=== PATIENT | male | born 1945 | race Caucasian/White ===

== ENCOUNTER → 2016-07-04 | Outpatient (CLI) | payer OTHER, BC | LOC: BMCIMAGING 11:17 | PROVIDERS: ATTEND Internal Medicine Rheumatology | DX: M18.0 Bilateral primary osteoarthritis of first carpometacarpal joints (principal) ==

== ENCOUNTER 2016-08-04 19:21 | Inpatient (IN) | payer OTHER, BC ==
--- NOTE | 2016-08-04 19:33 | EDPHY ---
H & P Time Seen by Provider: 08/04/16 19:27 HPI/ROS: CHIEF COMPLAINT: Fever and chills and dysuria HISTORY OF PRESENT ILLNESS: Patient is a history of enlarged prostate. This afternoon he felt hot and then turned the air conditioning on and started shivering. He was drinking a lot of coffee and had an episode of dysuria with some blood in his urine including passing a single clot. His temperature was a 102degrees and he continued to feel terrible and presents the emergency department for evaluation. No headache or neck stiffness or sore throat or recent travel or vomiting or diarrhea. No coughing and not short of breath. REVIEW OF SYSTEMS: Eye: no change in vision ENT: no sore throat Cardiac: no chest pain or syncope Pulmonary: no cough or SOB Abdomen: no vomiting, diarrhea, abdominal pain Musculoskeletal: no back pain Skin: no rash Neuro: no headache Constitutional: HPI : HPI A comprehensive 10 point review of systems is otherwise negative aside from elements mentioned in the history of present illness. PAST MEDICAL HISTORY: Enlarged prostate, surgery on both shoulders. Social history: Nonsmoker, no recent foreign travel. General Appearance: Alert and conversant, cooperative. Eyes: No scleral icterus. ENT, Mouth: Normal mucous membranes. Respiratory: Normal respiratory effort, breath sounds equal, lungs are clear to auscultation. Cardiovascular: Regular rate and rhythm. Gastrointestinal: Abdomen is soft and non tender. Normal male . Neurological: Alert and oriented x3. Normally conversant. Face symmetric, normal movement and sensation in all extremities. Ambulatory. Skin: Warm and dry, no rashes. Musculoskeletal: Neck supple, no meningeal signs. Psychiatric: Not agitated. Emergency Department course/MDM: Bladder scan shows no postvoid residual. Patient does have SIRS criteria with fever and tachycardia. Does not have severe sepsis or septic shock criteria. 2024: Results discussed, chest x-ray. Ceftriaxone IV for probable urosepsis. IV normal saline bolus. Smoking Status: Never smoked Constitutional: Initial Vital Signs Temperature (C) 39.4 C H 08/04/16 19:22 Heart Rate 105 H 08/04/16 19:22 Respiratory Rate 18 08/04/16 19:22 Blood Pressure 115/66 08/04/16 19:22 O2 Sat (%) 93 08/04/16 19:22 O2 Delivery Mode Room Air Allergies/Adverse Reactions: No Known Allergies Allergy (Unverified 08/04/16 19:25) Home Medications: Medication Instructions Recorded Dutasteride [Avodart 0.5 MG (*)] 0.5 mg PO DAILY 11/29/14 acetaZOLAMIDE [Diamox 250 mg (RX)] 250 mg PO DAILY 11/29/14 Aspirin [Aspirin 81mg (*)] 81 mg PO DAILY 08/04/16 Rosuvastatin Calcium [Crestor 5mg] 5 mg PO DAILY 08/04/16 Medical Decision Making - Diagnostics Imaging Results: Imaging Impressions Chest X-Ray 08/04/16 20:23 Impression: 1. No visible etiology for the patient's fever. 2. Mild compression fracture at L1, age indeterminate, new since 2009. Chest x-ray personally interpreted negative for pneumonia. Differential Diagnosis: Differential for fever and chills considered including but not limited to sepsis , UTI, pneumonia, meningitis, viral syndrome Consult/Admit Bed Type: [address] - Data Points Laboratory Results: Laboratory Results 08/04/16 19:35 08/04/16 19:35 08/04/16 08/04/16 08/04/16 19:35 19:35 19:35 WBC RBC Hgb Hct MCV MCH MCHC RDW Plt Count MPV Neut % (Auto) Lymph % (Auto) [place] % (Auto) Eos % (Auto) Baso % (Auto) Nucleat RBC Rel Count Absolute Neuts (auto) Absolute Lymphs (auto) Absolute Monos (auto) Absolute Eos (auto) Absolute Basos (auto) Absolute Nucleated RBC Immature Gran % Immature Gran # PT 13.7 SEC SEC (12.0-15.0) INR 1.06 (0.83-1.16) APTT 25.5 SEC SEC (23.0-38.0) VBG Lactic Acid Sodium 137 mEq/L mEq/L (134-144) Potassium 3.8 mEq/L mEq/L (3.5-5.2) Chloride 107 mEq/L mEq/L (97-110) Carbon Dioxide 18 mEq/l L mEq/l (22-31) Anion Gap 12 mEq/L mEq/L (8-16) BUN 20 mg/dL mg/dL (7-23) Creatinine 1.0 mg/dL mg/dL (0.7-1.3) Estimated GFR > 60 Glucose 108 mg/dL H mg/dL (70-100) Calcium 9.6 mg/dL mg/dL (8.5-10.4) Total Bilirubin 1.0 mg/dL mg/dL (0.1-1.4) Urine Color YELLOW Urine Appearance CLEAR Urine pH 5.0 (5.0-7.5) Ur Specific [place] 1.011 (1.002-1.030) Urine Protein NEGATIVE (NEGATIVE) Urine Ketones NEGATIVE (NEGATIVE) Urine Blood 2+ H (NEGATIVE) Urine Nitrate NEGATIVE (NEGATIVE) Urine Bilirubin NEGATIVE (NEGATIVE) Urine Urobilinogen NEGATIVE EU EU (0.2-1.0) Ur Leukocyte Esterase TRACE H (NEGATIVE) Urine RBC 25-50 /hpf H /hpf (0-3) Urine WBC 5-10 /hpf H /hpf (0-3) Ur Epithelial Cells TRACE /lpf /lpf (NONE-1+) Urine Glucose NEGATIVE (NEGATIVE) 08/04/16 08/04/16 19:35 19:35 WBC 11.95 10^3/uL H 10^3/uL (3.80-9.50) RBC 5.61 10^6/uL 10^6/uL (4.40-6.38) Hgb 16.1 g/dL g/dL (13.7-17.5) Hct 46.9 % % (40.0-51.0) MCV 83.6 fL fL (81.5-99.8) MCH 28.7 pg pg (27.9-34.1) MCHC 34.3 g/dL g/dL (32.4-36.7) RDW 13.2 % % (11.5-15.2) Plt Count 261 10^3/uL 10^3/uL (150-400) MPV 8.6 fL L fL (8.7-11.7) Neut % (Auto) 86.0 % H % (39.3-74.2) Lymph % (Auto) 4.2 % L % (15.0-45.0) [place] % (Auto) 4.5 % % (4.5-13.0) Eos % (Auto) 4.5 % % (0.6-7.6) Baso % (Auto) 0.5 % % (0.3-1.7) Nucleat RBC Rel Count 0.0 % % (0.0-0.2) Absolute Neuts (auto) 10.28 10^3/uL H 10^3/uL (1.70-6.50) Absolute Lymphs (auto) 0.50 10^3/uL L 10^3/uL (1.00-3.00) Absolute Monos (auto) 0.54 10^3/uL 10^3/uL (0.30-0.80) Absolute Eos (auto) 0.54 10^3/uL H 10^3/uL (0.03-0.40) Absolute Basos (auto) 0.06 10^3/uL 10^3/uL (0.02-0.10) Absolute Nucleated RBC 0.00 10^3/uL 10^3/uL (0-0.01) Immature Gran % 0.3 % % (0.0-1.1) Immature Gran # 0.03 10^3/uL 10^3/uL (0.00-0.10) PT INR APTT VBG Lactic Acid 0.9 mmol/L mmol/L (0.7-2.1) Sodium Potassium Chloride Carbon Dioxide Anion Gap BUN Creatinine Estimated GFR Glucose Calcium Total Bilirubin Urine Color Urine Appearance Urine pH Ur Specific [place] Urine Protein Urine Ketones Urine Blood Urine Nitrate Urine Bilirubin Urine Urobilinogen Ur Leukocyte Esterase Urine RBC Urine WBC Ur Epithelial Cells Urine Glucose Medications Given: Discontinued Medications Ceftriaxone Sodium/Dextrose (Rocephin 1 Gm (Premix)) 50 mls @ 100 mls/hr IV EDNOW ONE PRN Reason: Protocol Stop: 08/04/16 20:57 Last Admin: 08/04/16 20:40 Dose: 50 mls Sodium Chloride (Ns) 1,000 mls @ 0 mls/hr IV ONCE ONE; Wide Open PRN Reason: Protocol Stop: 08/04/16 20:29 Last Admin: 08/04/16 20:37 Dose: 1,000 mls Sodium Chloride (Ns) 1,000 mls @ 0 mls/hr IV ONCE ONE; Wide Open PRN Reason: Protocol Stop: 08/04/16 20:29 Last Admin: 08/04/16 20:37 Dose: 1,000 mls Departure - Departure Disposition: [facility] Inpatient Acute Clinical Impression: Urinary tract infection Qualifiers: Urinary tract infection type: acute pyelonephritis Qualified Code(s): N10 - Acute pyelonephritis Condition: Good
[2016-08-04 19:42] LABS: COLOR YELLOW; LEUKOCYTE ESTERASE,URINE TRACE (NEGATIVE); NITRITE,URINE NEGATIVE (NEGATIVE)
[2016-08-04 19:49] LABS: % IMMATURE GRANULYOCYTES 0.3 % (0.0-1.1); ABSOLUTE IMMATURE GRANULOCYTES 0.03 10^3/uL (0.00-0.10); ADD DIFF? NO; ADD MORPH? NO; ADD SCAN? NO; ATYPICAL LYMPHOCYTE FLAG 0 (0-99); FRAGMENT RBC FLAG 0 (0-99); HEMATOCRIT 46.9 % (40.0-51.0); HEMOGLOBIN 16.1 g/dL (13.7-17.5); LEFT SHIFT FLG 10 (0-99); LIPEMIA HEMOLYSIS FLAG 90 (0-99); MEAN CELL HEMOGLOBIN 28.7 pg (27.9-34.1); MEAN CELL HEMOGLOBIN CONCENTR. 34.3 g/dL (32.4-36.7); MEAN CELL VOLUME 83.6 fL (81.5-99.8); MEAN PLATELET VOLUME 8.6 fL (8.7-11.7); PLATELET CLUMPS FLAG 0 (0-99); PLATELET COUNT 261 10^3/uL (150-400); RED BLOOD CELL COUNT 5.61 10^6/uL (4.40-6.38); RED CELL DISTRIBUTION WIDTH 13.2 % (11.5-15.2)
[2016-08-04 19:56] LABS: APTT 25.5 SEC (23.0-38.0); INR 1.06 (0.83-1.16); PROTIME(PATIENT) 13.7 SEC (12.0-15.0)
[2016-08-04 20:00] LABS: ANION GAP 12 mEq/L (8-16); CALCIUM 9.6 mg/dL (8.5-10.4); CARBON DIOXIDE 18 mEq/l (22-31); CHLORIDE 107 mEq/L (97-110); GLOMERULAR FILTRATION RATE > 60; GLUCOSE 108 mg/dL (70-100); POTASSIUM 3.8 mEq/L (3.5-5.2); SODIUM 137 mEq/L (134-144)
[2016-08-04 20:11] LABS: RBC,URINE 25-50 /hpf (0-3)
[2016-08-04] MEDS ORDERED: NS 1,000 ML IV ONE ×2 (20:28)
[2016-08-04] MEDS ORDERED: ACETAMINOPHEN 325 MG TAB PO PRN (22:02)
[2016-08-04] MEDS ORDERED: ONDANSETRON 4 MG/2 ML VIAL IVP PRN (22:02)
[2016-08-04] MEDS ORDERED: oxyCODONE IR 5 MG TAB PO PRN (22:02)
[2016-08-04] MEDS ORDERED: ONDANSETRON DISINTEGRATING 4 MG TAB PO PRN (22:02)
[2016-08-04] MEDS ORDERED: PROMETHAZINE HCL 25 MG/ML INJ IVP PRN (22:02)
--- NOTE | 2016-08-04 22:10 | PDGENHP ---
History and Physical - Chief Complaint shaking chills/dysuria - History of Present Illness 71 yo M w/PMH of BPH, periodic familial paralysis presenting with fever, rigors and dysuria beginning today. He notes he was having difficulty urinating and burning with urination with associated pelvic and flank pain and then noted passing a blood clot from his penis with improved ability to urinate. This was followed however by violent shaking chills and fever. He asked a friend to come take a look at him and his friend thought that he should be seen in the ER. On arrival in the ER, he was found to be febrile and UA c/w possible UTI. He was given saline and Ceftriaxone and by the time I evaluated him he notes he is already feeling nearly 100% improved. He has never had similar issues in the past. He has no associated sxs. History Information - Allergies/Home Medication List Allergies/Adverse Reactions: No Known Allergies Allergy (Unverified 08/04/16 19:25) Home Medications: Dutasteride [Avodart 0.5 MG (*)] 0.5 mg PO DAILY 11/29/14 [Last Taken 08/04/16] acetaZOLAMIDE [Diamox 250 mg (RX)] 250 mg PO DAILY 11/29/14 [Last Taken 08/04/16 ] Aspirin [Aspirin 81mg (*)] 81 mg PO DAILY 08/04/16 [Last Taken 08/04/16] Rosuvastatin Calcium [Crestor 5mg] 5 mg PO DAILY 08/04/16 [Last Taken 08/04/16] I have personally reviewed and updated: family history, medical history, social history, surgical history - Past Medical History Additional medical history: BPH. periodic familial paralysis treated with acetazolamide and no longer causing issues - Surgical History Reports: no pertinent surgical hx - Family History Additional family history: multiple family members with periodic familial paralysis - Social History Smoking Status: Never smoked Alcohol Use: Rarely Drug Use: None Additional social history: lives independently Review of Systems ROS: 10pt was reviewed & negative except for what was stated in HPI & below Physical Exam Temp Pulse Resp BP Pulse Ox 36.4 C 77 16 104/62 93 08/04/16 21:52 08/04/16 21:52 08/04/16 21:52 08/04/16 21:52 08/04/16 21:52 Constitutional: no apparent distress, appears nourished Eyes: PERRL, anicteric sclera Ears, Nose, Mouth, Throat: moist mucous membranes, hearing normal Cardiovascular: regular rate and rhythym, no murmur, rub, or gallop, No edema Respiratory: no respiratory distress, no rales or rhonchi, clear to auscultation Gastrointestinal: normoactive bowel sounds, soft, non-tender abdomen Genitourinary: no bladder fullness, no bladder tenderness Skin: warm, normal color Musculoskeletal: full muscle strength Neurologic: AAOx3 Psychiatric: interacting appropriately, not anxious, not encephalopathic Lab Data & Imaging Review 08/04/16 19:35 08/04/16 19:35 WBC 11.95 10^3/uL (3.80-9.50) H 08/04/16 19:35 RBC 5.61 10^6/uL (4.40-6.38) 08/04/16 19:35 Hgb 16.1 g/dL (13.7-17.5) 08/04/16 19:35 Hct 46.9 % (40.0-51.0) 08/04/16 19:35 MCV 83.6 fL (81.5-99.8) 08/04/16 19:35 MCH 28.7 pg (27.9-34.1) 08/04/16 19:35 MCHC 34.3 g/dL (32.4-36.7) 08/04/16 19:35 RDW 13.2 % (11.5-15.2) 08/04/16 19:35 Plt Count 261 10^3/uL (150-400) 08/04/16 19:35 MPV 8.6 fL (8.7-11.7) L 08/04/16 19:35 Neut % (Auto) 86.0 % (39.3-74.2) H 08/04/16 19:35 Lymph % (Auto) 4.2 % (15.0-45.0) L 08/04/16 19:35 [place] % (Auto) 4.5 % (4.5-13.0) 08/04/16 19:35 Eos % (Auto) 4.5 % (0.6-7.6) 08/04/16 19:35 Baso % (Auto) 0.5 % (0.3-1.7) 08/04/16 19:35 Nucleat RBC Rel Count 0.0 % (0.0-0.2) 08/04/16 19:35 Absolute Neuts (auto) 10.28 10^3/uL (1.70-6.50) H 08/04/16 19:35 Absolute Lymphs (auto) 0.50 10^3/uL (1.00-3.00) L 08/04/16 19:35 Absolute Monos (auto) 0.54 10^3/uL (0.30-0.80) 08/04/16 19:35 Absolute Eos (auto) 0.54 10^3/uL (0.03-0.40) H 08/04/16 19:35 Absolute Basos (auto) 0.06 10^3/uL (0.02-0.10) 08/04/16 19:35 Absolute Nucleated RBC 0.00 10^3/uL (0-0.01) 08/04/16 19:35 Immature Gran % 0.3 % (0.0-1.1) 08/04/16 19:35 Immature Gran # 0.03 10^3/uL (0.00-0.10) 08/04/16 19:35 PT 13.7 SEC (12.0-15.0) 08/04/16 19:35 INR 1.06 (0.83-1.16) 08/04/16 19:35 APTT 25.5 SEC (23.0-38.0) 08/04/16 19:35 VBG Lactic Acid 0.9 mmol/L (0.7-2.1) 08/04/16 19:35 Sodium 137 mEq/L (134-144) 08/04/16 19:35 Potassium 3.8 mEq/L (3.5-5.2) 08/04/16 19:35 Chloride 107 mEq/L (97-110) 08/04/16 19:35 Carbon Dioxide 18 mEq/l (22-31) L 08/04/16 19:35 Anion Gap 12 mEq/L (8-16) 08/04/16 19:35 BUN 20 mg/dL (7-23) 08/04/16 19:35 Creatinine 1.0 mg/dL (0.7-1.3) 08/04/16 19:35 Estimated GFR > 60 08/04/16 19:35 Glucose 108 mg/dL (70-100) H 08/04/16 19:35 Calcium 9.6 mg/dL (8.5-10.4) 08/04/16 19:35 Total Bilirubin 1.0 mg/dL (0.1-1.4) 08/04/16 19:35 Urine Color YELLOW 08/04/16 19:35 Urine Appearance CLEAR 08/04/16 19:35 Urine pH 5.0 (5.0-7.5) 08/04/16 19:35 Ur Specific [place] 1.011 (1.002-1.030) 08/04/16 19:35 Urine Protein NEGATIVE (NEGATIVE) 08/04/16 19:35 Urine Ketones NEGATIVE (NEGATIVE) 08/04/16 19:35 Urine Blood 2+ (NEGATIVE) H 08/04/16 19:35 Urine Nitrate NEGATIVE (NEGATIVE) 08/04/16 19:35 Urine Bilirubin NEGATIVE (NEGATIVE) 08/04/16 19:35 Urine Urobilinogen NEGATIVE EU (0.2-1.0) 08/04/16 19:35 Ur Leukocyte Esterase TRACE (NEGATIVE) H 08/04/16 19:35 Urine RBC 25-50 /hpf (0-3) H 08/04/16 19:35 Urine WBC 5-10 /hpf (0-3) H 08/04/16 19:35 Ur Epithelial Cells TRACE /lpf (NONE-1+) 08/04/16 19:35 Urine Glucose NEGATIVE (NEGATIVE) 08/04/16 19:35 Visualized and Interpreted Chest x-ray results: Yes Chest X-Ray results: no infiltrate, other (mild compression fx at L1, age indeterminate) Assessment & Plan Assessment: Urinary tract infection (Acute) 71 yo M presenting with sepsis and likely uti # sepsis: initially presenting with fever, tachycardia and leukocytosis, with rigors at home. Blood and urine cultures pending, UA abnormal and started on ctx with rapid clinical improvement. HD stable, no e/o end organ dysfunction # UTI: in setting of above, UA only mildly abnormal but with urinary sxs and sepsis this is still presumably source. Does have underlying bph. Will continue ctx for now pending urine cultures, will likely need prolonged treatment for presumed complicated uti given underlying bph # hematuria: in setting of above and likely related to same, does have care established with urology and would recommend he get f/u to be certain this resolved # abnormal calcium heart score: patient states he was told he has the highest score they have ever seen, patient also states he anticipates dying abruptly from an [place]. Recommend he see a recruiting team lead. He has never had chest pain or known cardiac issues. # periodic familial paralysis: tx with acetazolamide and has been asymptomatic for some time. will continue. # BPH: continue avodart, as above Observation status, likely can dc in am so long as sxs remain significantly improved Patient new to my care. Old records reviewed and summarized as above. Care plan reviewed with ER doctor including plans for abx.
[2016-08-04] MEDS: NS 1,000 ML IV SCH (22:28)
[2016-08-05 05:26] LABS: % IMMATURE GRANULYOCYTES 0.4 % (0.0-1.1); ABSOLUTE IMMATURE GRANULOCYTES 0.03 10^3/uL (0.00-0.10); ADD DIFF? NO; ADD MORPH? NO; ADD SCAN? NO; ATYPICAL LYMPHOCYTE FLAG 0 (0-99); FRAGMENT RBC FLAG 0 (0-99); HEMOGLOBIN 13.7 g/dL (13.7-17.5); LEFT SHIFT FLG 20 (0-99); LIPEMIA HEMOLYSIS FLAG 80 (0-99); MEAN CELL HEMOGLOBIN 28.8 pg (27.9-34.1); MEAN CELL HEMOGLOBIN CONCENTR. 33.4 g/dL (32.4-36.7); MEAN CELL VOLUME 86.1 fL (81.5-99.8); MEAN PLATELET VOLUME 8.6 fL (8.7-11.7); PLATELET CLUMPS FLAG 0 (0-99); PLATELET COUNT 204 10^3/uL (150-400); RED BLOOD CELL COUNT 4.76 10^6/uL (4.40-6.38); RED CELL DISTRIBUTION WIDTH 13.4 % (11.5-15.2)
[2016-08-05 05:42] LABS: ANION GAP 5 mEq/L (8-16); CALCIUM 8.3 mg/dL (8.5-10.4); CARBON DIOXIDE 22 mEq/l (22-31); CHLORIDE 113 mEq/L (97-110); CREATININE 0.9 mg/dL (0.7-1.3); GLOMERULAR FILTRATION RATE > 60; GLUCOSE 91 mg/dL (70-100); POTASSIUM 4.1 mEq/L (3.5-5.2); SODIUM 140 mEq/L (134-144)
[2016-08-05] MEDS: acetaZOLAMIDE 250 MG TAB PO SCH (08:13)
[2016-08-05] MEDS: DUTASTERIDE 0.5 MG CAP PO SCH (08:13)
[2016-08-05] MEDS: ASPIRIN 81 MG CHEWABLE TAB PO SCH (08:13)
[2016-08-05] MEDS: ROSUVASTATIN CALCIUM 10 MG TAB PO SCH (08:13)
[2016-08-05] MEDS: NS 1,000 ML IV SCH (08:15)
[2016-08-05] MEDS ORDERED: PNEUMOC 13-VAL CONJ-DIP CRM/PF 0.5 ML SYR IM ONE (08:24)
[2016-08-05] MEDS ORDERED: NON-FORMULARY NEW DRUG (Rosuvastatin Calcium [Crestor 5mg] 5 MG) PO SCH (09:00)
--- NOTE | 2016-08-05 09:57 | HOSPPROG ---
Hospitalist Progress Note Assessment/Plan: DIAGNOSES: + acute sepsis, resolved + complicated urinary tract infection + bacteremia with Gram-positive cocci, suspect Enterococcus based on preliminary result of blood culture + metabolic acidosis + familial periodic Paralysis I suspect chronic prostatic enlargement and incomplete bladder emptying are at least partly to blame for his susceptibility to this infection. He seems to be responding well to antibiotics and hydration here. With gram-positive cocci in blood cultures will need to get complete culture and sensitivity result in order to determine antibiotic regimen for discharge. At this time he will require ongoing IV antibiotics and IV hydration. PLANS: -continue current empiric IV antibiotics -follow hemodynamics closely and watch for any other signs of recurring sepsis SUBJECTIVE: Feels notably better today, rigors have resolved Eating well, no nausea No dyspnea No pain He does mention that he has some chronic prostate issues with chronic mild urinary frequency OBJECTIVE Vitals reviewed: Stable without fever Exam: alert oriented skin warm dry color ok resps not labored lungs clear BSs heart regular abd soft nondistended nontender, bowel sounds present limbs warm, no edema iv site ok Blood cultures so far growing gram-positive cocci in chains suggesting a strep Laboratory data: Acidosis has resolved, renal function stable White blood cell count is improved Objective: Vital Signs Temp Pulse Resp BP Pulse Ox 36.8 C 79 16 136/70 H 97 08/05/16 08:00 08/05/16 08:00 08/05/16 08:00 08/05/16 08:00 08/05/16 08:00 Laboratory Results 08/05/16 05:09 08/05/16 05:09 08/04/16 08/05/16 08/06/16 06:59 06:59 06:59 Intake Total 2250 800 Output Total 550 Balance 1700 800 PT 13.7 SEC (12.0-15.0) 08/04/16 19:35 INR 1.06 (0.83-1.16) 08/04/16 19:35 ICD10 Worksheet Patient Problems: Problems Problem Status Onset Urinary tract infection Acute
[2016-08-05 17:00] LABS: ALBUMIN 2.6 g/dL (3.5-5.0); BILIRUBIN,TOTAL 1.1 mg/dL (0.1-1.4); BILIRUBIN-CONJUGATED 0.4 mg/dL (0.0-0.5); BILIRUBIN-UNCONJUGATED 0.7 mg/dL (0.0-1.1); TOTAL PROTEIN 4.7 g/dL (6.3-8.2)
--- NOTE | 2016-08-05 17:31 | HOSPPROG ---
Hospitalist Progress Note Assessment/Plan: DIAGNOSES: + acute sepsis, resolved + complicated urinary tract infection + bacteremia with Gram-positive cocci, suspect Enterococcus based on preliminary result of blood culture + metabolic acidosis + familial periodic Paralysis I suspect chronic prostatic enlargement and incomplete bladder emptying are at least partly to blame for his susceptibility to this infection. He seems to be responding well to antibiotics and hydration here. With gram-positive cocci in blood cultures will need to get complete culture and sensitivity result in order to determine antibiotic regimen for discharge. At this time he will require ongoing IV antibiotics and IV hydration. I have reviewed his case in detail with Dr Lombardo who will see the patient. He agrees with continuing current abx here and make further decision about abx after final cx sens results known PLANS: -continue current empiric IV antibiotics -follow hemodynamics closely and watch for any other signs of recurring sepsis SUBJECTIVE: Feels notably better today, rigors have resolved Eating well, no nausea No dyspnea No pain He does mention that he has some chronic prostate issues with chronic mild urinary frequency OBJECTIVE Vitals reviewed: Stable without fever Exam: alert oriented skin warm dry color ok resps not labored lungs clear BSs heart regular abd soft nondistended nontender, bowel sounds present limbs warm, no edema iv site ok Blood cultures so far growing gram-positive cocci in chains suggesting a strep Laboratory data: Acidosis has resolved, renal function stable White blood cell count is improved Objective: Vital Signs Temp Pulse Resp BP Pulse Ox 37.3 C 65 16 135/83 H 99 08/05/16 16:31 08/05/16 16:31 08/05/16 16:31 08/05/16 16:31 08/05/16 16:31 PT 13.7 SEC (12.0-15.0) 08/04/16 19:35 INR 1.06 (0.83-1.16) 08/04/16 19:35 - Time Spent With Patient Time Spent with Patient: greater than 35 minutes Time Spent with Patient: Greater than 35 minutes spent on this patients care, greater than 50% of time spent counseling, educating, and coordinating care regarding the above mentioned plan. ICD10 Worksheet Patient Problems: Problems Problem Status Onset Urinary tract infection Acute
--- NOTE | 2016-08-05 21:19 | GCON ---
[f rep st] CONSULTATION DATE OF CONSULTATION: 08/05/2016 REFERRING PHYSICIAN: Campbell Rivera MD REASON FOR CONSULTATION: Streptococcal bacteremia. HISTORY OF PRESENT ILLNESS: Patient is a 71-year-old male with a past medical history of BPH and pe riodic paralysis, who I am asked to see in consultation for streptococcal bacteremia. The patient d escribes developing the sudden onset of fever and rigors yesterday afternoon. When he checked his t emperature, it was 102. He does note that earlier in the day he had some difficulty passing urine a nd passed what sounds like a blood clot. He did not describe true dysuria, urgency, or frequency. He notes his rigors resolved upon presentation to the hospital and have not recurred. He has not chapa d any recent skin problems. He denies any recent dental work or dental problems. He does note an u nintentional 10-pound weight loss over the last several months. He states he has had a colonoscopy approximately 10 years ago, which he does not recall any overt abnormalities. No sore throat. He d id strain his back when he picked up his dog several days prior to symptom onset. No significant pa in in this region. Presenting laboratories revealed a white blood cell count of 11.9 with left shif t. Urinalysis had 5-10 white blood cells and 25-50 red blood cells. Blood cultures were obtained a nd 1 of 2 sets is now showing growth of streptococcal species not identified further by PCR in the a erobic bottle. Today, he notes he feels markedly improved without any ongoing symptoms. Given the positive blood culture and above clinical findings, I am now asked to assist in the patient's ongoin g management. PAST MEDICAL HISTORY: Periodic paralysis, which is familial, hypercholesterolemia. PAST SURGICAL HISTORY: Bilateral shoulder surgery. CURRENT MEDICATIONS: Ceftriaxone 1 g IV daily, aspirin 81 mg p.o. daily, Diamox 250 mg p.o. daily, Crestor 5 mg p.o. daily. ALLERGIES: No known drug allergies. SOCIAL HISTORY: Patient does not smoke. He drinks 1-2 beers daily. No drug use. Traveled to [facility] recently. There is a pet dog at home. FAMILY HISTORY: Periodic paralysis. REVIEW OF SYSTEMS: Outside of that noted in the HPI, remainder of 10 System Review is unremarkable. PHYSICAL EXAMINATION: VITAL SIGNS: Temperature maximum 39.4, temperature current 36.8, heart rate 79, respiratory rate 16, blood pressure 136/70. GENERAL: Patient is well nourished, well developed in no acute distress. He appears nontoxic. HEENT: There is no scleral icterus, conjunctival inje ction, or conjunctival petechiae. Oropharynx shows no lesions. Mucous membranes are moist. Dentit ion is in fair repair. There is no nasal discharge. There is no tenderness over the frontal, maxil uma or mastoid area. NECK: Supple without lymphadenopathy or palpable thyromegaly. CHEST: Clear to auscultation bilaterally without adventitious sounds. The respiratory effort is normal. CARDIO VASCULAR: Regular rate and rhythm without murmurs, gallops, or rubs. ABDOMEN: Soft, nontender, no ndistended. There is no palpable organomegaly. Bowel sounds are present. BACK: There is no CVA t enderness. MUSCULOSKELETAL: There is no cyanosis, clubbing, or edema. SKIN: No rashes present. There are no stigmata of endocarditis. Skin is warm and dry to touch. LYMPHATICS: No cervical or supraclavicular nodes. NEUROLOGIC: Patient is alert and interacts appropriately with examiner. Cr anial nerves 2-12 are grossly intact. Sensation is grossly intact. Muscle tone and bulk are normal . LABORATORY DATA: White blood cell count 7.2, hematocrit 41.0, platelets 204, neutrophils 78%. Seru m creatinine 0.9, venous lactate is 0.9. INR 1.1. Urinalysis showing 25-50 red blood cells and 5-1 0 white blood cells. Chest x-ray shows no evidence of pneumonia. Blood cultures with 1 of 2 sets s howing a streptococcal species not identified as group A or B streptococcus or Streptococcus pneumon iae by PCR. Urine culture is pending. IMPRESSION: 1. Streptococcal bacteremia: Blood cultures show 1 of 2 sets with a streptococcal species, which h as not been further identified by PCR. Considerations would include an oropharyngeal strep, microae rophilic streptococci, or streptococcus group C or G. Further identification will be important in d efining further evaluation based on typical ecologic niche for species. Will continue ceftriaxone b ut increase to 2 g IV daily in interim. Repeat blood cultures to document clearing of bacteremia. Clinical examination is without findings to suggest endocarditis. Urinary etiology is of considerat ion given his presenting symptoms, although streptococcal species are not particularly common causes of urinary tract infection. RECOMMENDATIONS: 1. Increase ceftriaxone to 2 g IV q.24 hours. 2. Repeat blood cultures to assess for clearing of bacteremia. 3. Await culture data for speciation of streptococcal species to further define. Additional evalua tion, such as CT scan of the abdomen and pelvis or an echocardiogram. Thank you for this consultation. We will continue to follow the patient with you. /[id number]/MODL
[2016-08-06] MEDS: NS 1,000 ML IV SCH (06:52)
[2016-08-06] MEDS: DUTASTERIDE 0.5 MG CAP PO SCH (08:56)
[2016-08-06] MEDS: cefTRIAXone 2 GM in D5W 50 ML IV SCH (08:56)
[2016-08-06] MEDS: acetaZOLAMIDE 250 MG TAB PO SCH (08:57)
[2016-08-06] MEDS: ASPIRIN 81 MG CHEWABLE TAB PO SCH (08:57)
[2016-08-06] MEDS: ROSUVASTATIN CALCIUM 10 MG TAB PO SCH (08:57)
--- NOTE | 2016-08-06 11:54 | PCMIDPN ---
Assessment/Plan: Assessment/Plan: 1. Alpha streptococcal sepsis/bacteremia: -Etiology uncertain. Given murmur will check f/u TTE to start with. -f/u blood cx were collected this AM. I discussed with patient that is important to have these results prior to discharge to ensure responding to therapy as well as to determine length of therapy.. -Obtain heart scan results from [facility]. -Continue with high dose Ceftriaxone at 2 gm daily for now. - Meds ceftraixone 2g daily- 08/05/16 Subjective: afebrile. patient feels well and wants to go home. He denies any further fevers , rigors etc. no dysuria and denies hematuria. He denies blood in stools, dark stools, or pencil like stools in general. he denies abd pain. he has been dealing with fatigue over past several months (since March) and did have 10 pound unintentional weight loss that started in Mar despite taking in adequate calories. He states he has been sent to Rheumatology, cardiology, and hand surgeon over past several months for furthe evaluation. he tells me he had a heart scan done a month ago and was told he had "a lot of calcium" noted. He doesn't formally know the formal results. Objective: Vital Signs Temp Pulse Resp BP Pulse Ox 36.7 C 62 16 112/73 96 08/06/16 04:56 08/06/16 07:46 08/06/16 07:46 08/06/16 07:46 08/06/16 07:46 08/05/16 08/06/16 08/07/16 05:59 05:59 05:59 Intake Total 2300 Output Total 350 Balance 1950 - Physical Exam General Appearance: alert, no apparent distress EENT: PERRL/EOMI, other (no conjunctival petechia noted. he does have small area of eccymosis noted in upper right gum line. no other oral lesions noted.), No thrush Respiratory: lungs clear Cardiac/Chest: regular rate, rhythm, systolic murmur (soft systolic murmur appreciated at left apex) Extremities: other (no petechia noted, no obvious janeway lesions or embolic lesions noted), No swelling Abdomen: normal bowel sounds, non-tender, soft, No distended Skin: other (tight skin noted of both hands), No erythema ICD10 Worksheet Patient Problems: Problems Problem Status Onset Urinary tract infection Acute
--- NOTE | 2016-08-06 14:53 | ECHO ---
[id number] + + [address] : : [place] [address] : : [phone] + + Adult Echocardiographic Report + --------+ :Name: SREEDHAR MONTEIRO FStudy Date: 08/06/2016 02:07 PM : : Hospital Admission Number: [id number] Locat ion: 150: :: 1945 Gender: Male Height: 69 in : :Age: 71 yrs Race: WH Weight: 142 l b : :Reason For Study: Bacteremia/murmur : : BSA: 1.8 mete rs2 : + --------+ MMode/2D Measurements \T\ Calculations IVSd: 0.45 cm LVIDd: 5.8 cm FS: 47.2 % Ao root diam: LVPWd: 0.66 cm LVIDs: 3.0 cm EDV(Teich): 3.5 cm 163.9 ml LA dimension: ESV(Teich): 3.9 cm 36.2 ml EF(Teich): 77.9 % LVLd ap4: 8.9 cm SV(MOD-sp4): EDV(MOD-sp4): 87.0 ml 117.0 ml LVLs ap4: 7.1 cm ESV(MOD-sp4): 30.0 ml EF(MOD-sp4): 74.4 % Normal Measurement Values: + + :LVIDd (3.5-5.7cm) IVSd (0.6-1.1cm) LVPWd (0.6-1.1cm) Aortic Root (2.0-3.7cm)Left Atrium (1.5-4.0cm): :LV Vol(d) (76-115ml) LV Vol(s) (29-48ml) Ejec Fraction (50-65%)PV Hua (0.6- 1.2m/s) TV Hua (0.4-1.0m/s) : :MV E Hua (0.8-1.0m/s)MV A Hua (0.3-1.0m/s)LVOT Hua (0.7-1.2m/s) Asc Ao Hua ( 0.9-1.8m/s) : + + Doppler Measurements \T\ Calculations MV E max hua: 64.7 cm/sec Ao V2 max: 132.0 cm/sec TR max hua: 231.0 cm/sec MV A max hua: 48.9 cm/sec Ao max P.0 mmHg TR max P.3 mmHg MV E/A: 1.3 RAP systole: 5.0 mmHg RVSP(TR): 26.3 mmHg Left Ventricle The left ventricle is normal in size. There is normal left ventricular wall thickness. Left ventricular systolic function is normal. Ejection Fraction = 65-70%. No regional wall motion abnormalities noted. Right Ventricle The right ventricle is normal in size and function. Atria The left atrial size is normal. The right atrium is mildly dilated. A prominent eustachian valve is noted. The interatrial septum is intact with no evidence for an atrial septal defect. Mitral Valve The mitral valve is normal in structure and function. There is no evidence of mitral valve prolapse. There is no mitral valve stenosis. There is mild mitral regurgitation. Tricuspid Valve Normal tricuspid valve. There is mild tricuspid regurgitation. Right ventricular systolic pressure is normal. Aortic Valve The aortic valve is trileaflet. The aortic valve opens well. There is no aortic stenosis. There is no aortic insufficiency. Pulmonic Valve The pulmonic valve is not well visualized. There is no pulmonic valvular regurgitation. Great Vessels The aortic root is normal size. Pericardium/Pleural There is no pericardial effusion. Conclusion A complete two-dimensional transthoracic echocardiogram was performed (2D, M-mode, Doppler and color flow Doppler). The patient has a dilated IVC. Left ventricular systolic function is normal. Ejection Fraction = 65-70%. The right atrium is mildly dilated. There is mild mitral regurgitation. There is mild tricuspid regurgitation. Right ventricular systolic pressure is normal. Final Reading Physician: Keith Dobson signed on 08/06/2016 02:52 PM Ordering Physician: Ary Gross Performed By: Karen Knapp, CS
--- NOTE | 2016-08-06 15:49 | HOSPPROG ---
Hospitalist Progress Note Assessment/Plan: DIAGNOSES: + acute sepsis, resolved + complicated urinary tract infection + non group a streptococcal bacteremia + metabolic acidosis + familial periodic Paralysis ? if this is urinary tract or other infectious etiology He is responding well to antibiotics so far. With uncertain source of infection and without final identification or sensitivity test results, will continue with IV antibiotics here in the hospital PLANS: -continue current empiric IV antibiotics in-hospital, await final ID results -follow hemodynamics closely and watch for any other signs of recurring sepsis - echocardiogram to look for any possible signs of endocarditis SUBJECTIVE: Feels Normal today Eating well, no nausea No dyspnea No pain OBJECTIVE Vitals reviewed: Stable without fever Exam: alert oriented skin warm dry color ok resps not labored lungs clear BSs heart regular abd soft nondistended nontender, bowel sounds present limbs warm, no edema iv site ok Blood cultures with non group a Streptococcus Laboratory data: Acidosis has resolved, renal function stable White blood cell count is improved Objective: Vital Signs Temp Pulse Resp BP Pulse Ox 36.7 C 62 16 112/73 96 08/06/16 04:56 08/06/16 07:46 08/06/16 07:46 08/06/16 07:46 08/06/16 07:46 08/05/16 08/06/16 08/07/16 06:59 06:59 06:59 Intake Total 2300 Output Total 350 Balance 1950 PT 13.7 SEC (12.0-15.0) 08/04/16 19:35 INR 1.06 (0.83-1.16) 08/04/16 19:35 ICD10 Worksheet Patient Problems: Problems Problem Status Onset Urinary tract infection Acute
[2016-08-07 08:15] VITALS: BP 106/66; PULSE 65; RESP 16; TEMP 97.7; O2SAT 99
[2016-08-07] MEDS: cefTRIAXone 2 GM in D5W 50 ML IV SCH (09:31)
[2016-08-07] MEDS: DUTASTERIDE 0.5 MG CAP PO SCH (09:31)
[2016-08-07] MEDS: ASPIRIN 81 MG CHEWABLE TAB PO SCH (09:32)
[2016-08-07] MEDS: acetaZOLAMIDE 250 MG TAB PO SCH (09:32)
[2016-08-07] MEDS: ROSUVASTATIN CALCIUM 10 MG TAB PO SCH (09:32)
--- NOTE | 2016-08-07 10:38 | PCMIDPN ---
Assessment/Plan: Assessment: Bacteremia with alpha hemolytic Streptococcus. Pending identification. Unlikely that the source is urinary tract infection. His urine culture is growing out a pure lactobacillus species. Patient has improved on IV ceftriaxone. Plan is to continue the ceftriaxone for 2 weeks from cleared blood cultures. Patient is opting to do this via [facility] infusion center and peripheral IV lines. 08/06 is his 1st negative culture (so far) therefore the stop date will be 08/20/2016. As to source we will check an abdominal pelvic CT scan today. Patient will likely also need a colonoscopy as an outpatient. Plan: 1. Continue ceftriaxone. 2. Forego a PICC line per patient preference. 3. Peripheral IV use at [facility] for daily ceftriaxone infusions. 08/07/16 18:09 Subjective: Patient is resting in his hospital bed. He denies any new complaint. No fevers or chills overnight. Tolerating ceftriaxone without issue. Objective: Ceftriaxone #2 Vital Signs Temp Pulse Resp BP Pulse Ox 36.5 C 65 16 106/66 99 08/07/16 08:00 08/07/16 08:00 08/07/16 08:00 08/07/16 08:00 08/07/16 08:00 08/06/16 08/07/16 08/08/16 05:59 05:59 05:59 Intake Total 2300 650 Output Total 350 Balance 1950 650 - Physical Exam General Appearance: WD/WN, alert, no apparent distress, non-toxic Respiratory: lungs clear, normal breath sounds, No respiratory distress Cardiac/Chest: regular rate, rhythm, No tachycardia Abdomen: non-tender, soft, No mass Skin: normal color, warm/dry, No rash Neuro/Psych: alert, normal mood/affect, oriented x 3 ICD10 Worksheet Patient Problems: Problems Problem Status Onset Urinary tract infection Acute
[2016-08-07] MEDS ORDERED: IOPAMIDOL (ISOVUE-300) 100 ML BTL ONE (10:45)
--- NOTE | 2016-08-07 15:12 | HOSPPROG ---
Hospitalist Progress Note Objective: Vital Signs Temp Pulse Resp BP Pulse Ox 36.5 C 65 16 106/66 99 08/07/16 08:00 08/07/16 08:00 08/07/16 08:00 08/07/16 08:00 08/07/16 08:00 08/06/16 08/07/16 08/08/16 05:59 05:59 05:59 Intake Total 2300 650 Output Total 350 Balance 1950 650 PT 13.7 SEC (12.0-15.0) 08/04/16 19:35 INR 1.06 (0.83-1.16) 08/04/16 19:35 ICD10 Worksheet Patient Problems: Problems Problem Status Onset Urinary tract infection Acute
--- NOTE | 2016-08-07 15:20 | PDDCSUM ---
Discharge Summary Discharge Summary: Dates of service 08/04-08/07/16 Discharge dx: # group A strep bacteremia # sepsis # UTI # bph # periodic familial paralysis Consultations: ID Procedures performed: abd/pelvis ct Hospital course by problem: # group a strep bacteremia: positive cultures from the with repeat on the negative. Has been on ctx 2gm daily since 08/05 and will continue until 08/18. Source unclear, but did have some pericholecystic fluid on abd ct and abd us planned for op. Echo negative. will f/u with ID # sepsis: in setting of above and resolved # lactobacillus uti: >100k colonies on culture with urinary sxs initially that have now resolved. Not related to bacteremia # hematuria: one episode prior to admission in setting of presumed uti, no recurrence # periodic familial paralysis: continue acetazolamide Dc home f/u for abd US in next 1-2 days f/u in infusion center for ongoing abx therapy f/u with pcp and ID > 35 minutes spent in dc of patient more than half in coordination of care and face to face counseling of patient regarding f/u care plan s
== END 2016-08-07 17:19 | disposition home or self-care (01) | DRG 872 ==
LOC: F1N 21:45 → OBSVTOIN 08-05 16:15
PROVIDERS: ADMIT Internal Medicine; ATTEND Internal Medicine
DX: A40.0 Sepsis due to streptococcus, group A (principal); N39.0 Urinary tract infection, site not specified; B96.89 Other specified bacterial agents as the cause of diseases classified elsewhere; N40.0 Benign prostatic hyperplasia without lower urinary tract symptoms; R39.14 Feeling of incomplete bladder emptying; R35.0 Frequency of micturition; E78.00 Pure hypercholesterolemia, unspecified; E87.2 Acidosis; G72.3 Periodic paralysis
CPT/HCPCS: 96365; G0009; G0378; J0696; Q9967

== ENCOUNTER → 2016-08-16 | Outpatient (CLI) | payer OTHER, BC | LOC: FIMAGING 09:33 | PROVIDERS: ATTEND Internal Medicine | DX: K80.20 Calculus of gallbladder without cholecystitis without obstruction (principal) ==

== ENCOUNTER → 2016-09-04 | Outpatient (CLI) | payer OTHER, BC | LOC: BMCIMAGING 14:11 | PROVIDERS: ATTEND Internal Medicine Rheumatology | DX: Z13.820 Encounter for screening for osteoporosis (principal); M85.80 Other specified disorders of bone density and structure, unspecified site; Z79.52 Long term (current) use of systemic steroids ==

== ENCOUNTER 2016-09-12 12:58 | Emergency (ER) | payer OTHER, BC ==
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
[2016-09-12 16:59] VITALS: BP 130/75; PULSE 70; RESP 15; TEMP 98.1; O2SAT 95
== END 2016-09-12 16:58 | disposition home or self-care (01) ==
PROC: 0HQKXZZ Repair Right Lower Leg Skin, External Approach (ICD-10-PCS; principal; 2016-09-12)
DX: S81.011A Laceration without foreign body, right knee, initial encounter (principal); Z79.82 Long term (current) use of aspirin; V18.0XXA Pedal cycle driver injured in noncollision transport accident in nontraffic accident, initial encounter; Y92.828 Other wilderness area as the place of occurrence of the external cause; Y93.55 Activity, bike riding

== ENCOUNTER → 2018-04-28 | Outpatient (CLI) | payer OTHER, BC | LOC: BMCIMAGING 16:21 | PROVIDERS: ATTEND Internal Medicine Rheumatology | DX: M79.9 Soft tissue disorder, unspecified (principal); M25.832 Other specified joint disorders, left wrist ==